=== PATIENT | male | born 1965 | race Caucasian/White ===

== ENCOUNTER 2017-04-12 08:33 | Emergency (ER) | payer MEDICAID ==
[~2017-04-12] VITALS: Ht 165.1 cm; Wt 57.5 kg
[2017-04-12 08:39] VITALS: Ht 165.1 cm; Wt 57.5 kg
[2017-04-12] MEDS ORDERED: SOD CHLORIDE 0.9% 2,000 ML IV STA (09:46)
--- NOTE | 2017-04-12 09:55 | ERD ---
ER Documentation Chief Complaint Chief Complaint WEAK,DIZZY & LEGS FEEL HEAVY, SINCE LAST WEEK, NOT GETTING BETTER HPI This is a 52-year-old diabetic who takes metformin 1000 mg twice a day he says he has had progressively worsening dry mouth dizziness with polydipsia and polyuria. Patient was seen in an outside clinic this past weekend and was given insulin subcu for hyperglycemia but did not get put on insulin or have any medication dose changes. Does not have any fever chest pain shortness of breath no cough or dysuria no recent ROS All systems reviewed and are negative except as per history of present illness. Medications Home Meds Reported Medications Glyburide* (Glyburide*) 5 Mg Tablet, 5 MG PO BID, #60 TAB 04/12/17 Metformin* (Glucophage*) 1,000 Mg Tablet, 1000 MG PO BID, #60 TAB 04/12/17 Allergies Allergies: Coded Allergies: No Known Allergy (Unverified , 04/12/17) PMhx/Soc History of Surgery: No Anesthesia Reaction: No Hx Neurological Disorder: No Hx Respiratory Disorders: No Hx Cardiac Disorders: No Hx Psychiatric Problems: No Hx Miscellaneous Medical Probl: Yes (DM II) Hx Alcohol Use: Yes (socially) Hx Substance Use: No Hx Tobacco Use: No Smoking Status: Former smoker FmHx Family History: No coronary disease Physical Exam Vitals Vital Signs Date Time Temp Pulse Resp B/P Pulse Ox O2 Delivery O2 Flow Rate FiO2 04/12/17 09:55 97.9 73 18 127/77 100 04/12/17 08:39 97.1 72 20 137/82 98 Physical Exam Const: Well-developed, well-nourished Head: Atraumatic, normocephalic Eyes: Normal Conjunctiva, PERRLA, EOMI, normal sclera, no nystagmus ENT: Normal External Ears, Nose and Mouth, moist mucus membranes. Neck: Full range of motion. No meningismus, no lymphadenopathy. Resp: Clear to auscultation bilaterally, no wheezing, rhonchi, rales Cardio: Regular rate and rhythm, no murmurs, S1 S2 present Abd: Soft, non tender x 4, non distended. Normal bowel sounds, no guarding or rebound, no pulsitile abdominal masses or bruits Skin: No petechiae or rashes, no ecchymosis , no maculopapular rash Back: No midline or flank tenderness Ext: No cyanosis, or edema, FROM x 4, normal inspection, neurovascularly intact x 4 Neur: Awake and alert, STR 5/5 x 4, sensation intact x 4, no focal findings, cerebellum intact Psych: Normal Mood and Affect Result Diagram: 04/12/1755 04/12/17 0955 Results 24 hrs Laboratory Tests Test 04/12/17 09:55 White Blood Count 8.310^3/ul Red Blood Count 5.1710^6/ul Hemoglobin 14.9g/dl Hematocrit 45.7% Mean Corpuscular Volume 88.4fl Mean Corpuscular Hemoglobin 28.8pg Mean Corpuscular Hemoglobin Concent 32.6g/dl Red Cell Distribution Width 12.2% Platelet Count 64045^3/UL Mean Platelet Volume 11.4fl Neutrophils % 74.5% Lymphocytes % 18.6% Monocytes % 5.1% Eosinophils % 1.1% Basophils % 0.5% Nucleated Red Blood Cells % 0.0/100WBC Neutrophils # 6.210^3/ul Lymphocytes # 1.510^3/ul Monocytes # 0.410^3/ul Eosinophils # 0.110^3/ul Basophils # 0.010^3/ul Nucleated Red Blood Cells # 0.010^3/ul Urine Color YELLOW Urine Clarity CLEAR Urine pH 6.0 Urine Specific [place] 1.043 Urine Ketones 2+mg/dL Urine Nitrite NEGATIVEmg/dL Urine Bilirubin NEGATIVEmg/dL Urine Urobilinogen NEGATIVEmg/dL Urine Leukocyte Esterase NEGATIVELeu/ul Urine Hemoglobin NEGATIVEmg/dL Urine Glucose 3+mg/dL Urine Total Protein NEGATIVEmg/dl Sodium Level 145mmol/L Potassium Level 4.8mmol/L Chloride Level 101mmol/L Carbon Dioxide Level 32mmol/L Anion Gap 17 Blood Urea Nitrogen 13mg/dl Creatinine 0.67mg/dl Glucose Level 336mg/dl Calcium Level 8.9mg/dl Current Medications Medications (Trade) Dose Ordered Sig/Bj Route PRN Reason Start Time Stop Time Status Last Admin Dose Admin Sodium Chloride (NS) 2,000 ml @ 1,000 mls/hr Q2H STAT IV 04/12/17 09:46 04/12/17 11:45 DC 04/12/17 10:18 Procedures/MDM Patient's blood sugars 336. He received 2 L of normal saline. The patient is taking his glyburide and metformin as told twice a day. However , he is eating a very poor diet with sodas and lots of sugar. We explained to him that he cannot you whatever he wants this because he is taking diabetes medications. He must follow a low-carb low sugar diet which is explained to him in detail Departure Diagnosis: Primary Impression: Uncontrolled diabetes mellitus Diabetes mellitus type: type 2 Diabetes mellitus complication status: without complication Diabetes mellitus intermediate teacher insulin use: without senior care use Qualified Code: E11.65 - Uncontrolled type 2 diabetes mellitus without complication, without long-term current use of insulin Condition: Stable REGAN BUTCHER DO Apr 12, 2017 09:55
[2017-04-12 10:15] LABS: BASOPHILS % 0.5 % (0.0-2.0); EOSINOPHILS # 0.1 10^3/ul (0.0-0.5); EOSINOPHILS % 1.1 % (0.0-7.0); HEMATOCRIT 45.7 % (42.0-52.0); HEMOGLOBIN 14.9 g/dl (14.0-18.0); LYMPHOCYTES # 1.5 10^3/ul (0.8-2.9); LYMPHOCYTES % 18.6 % (15.0-51.0); MEAN CORPUSCULAR HEMOGLOBIN 28.8 pg (29.0-33.0); MEAN CORPUSCULAR HGB CONC 32.6 g/dl (32.0-37.0); MEAN CORPUSCULAR VOLUME 88.4 fl (82.0-101.0); MEAN PLATELET VOLUME 11.4 fl (7.4-10.4); MONOCYTE # 0.4 10^3/ul (0.3-0.9); MONOCYTES % 5.1 % (0.0-11.0); NEUTROPHIL # 6.2 10^3/ul (1.6-7.5); NEUTROPHILS % 74.5 % (39.0-77.0); PLATELET COUNT 252 10^3/UL (140-415); RED BLOOD COUNT 5.17 10^6/ul (4.70-6.10); RED CELL DISTRIBUTION WIDTH 12.2 % (11.5-14.5); WHITE BLOOD COUNT 8.3 10^3/ul (4.8-10.8)
[2017-04-12] MEDS ORDERED: MTF1000T PO (10:18)
[2017-04-12] MEDS ORDERED: GLYB5TAB3 PO (10:19)
[2017-04-12 10:29] LABS: ADD UMIC NO; UR ASCORBIC ACID 20 mg/dL (NEGATIVE); UR BILIRUBIN (Dip) NEGATIVE (NEGATIVE); UR BLOOD (Dip) NEGATIVE (NEGATIVE); UR CLARITY CLEAR (CLEAR); UR COLOR YELLOW (YELLOW); UR GLUCOSE (Dip) 3+ mg/dL (NEGATIVE); UR KETONES (Dip) 2+ mg/dL (NEGATIVE); UR LEUKOCYTE ESTERASE (Dip) NEGATIVE Leu/ul (NEGATIVE); UR NITRITE (Dip) NEGATIVE (NEGATIVE); UR SPECIFIC GRAVITY (Dip) 1.043 (1.003-1.030); UR TOTAL PROTEIN (Dip) NEGATIVE (NEGATIVE); UR UROBILINOGEN (Dip) NEGATIVE (NEGATIVE)
[2017-04-12 10:35] LABS: CALCIUM 8.9 mg/dl (8.4-10.2); CREATININE 0.67 mg/dl (0.61-1.24); POTASSIUM 4.8 mmol/L (3.5-5.1)
--- NOTE | 2017-04-12 12:22 | ERD ---
ER Documentation Chief Complaint Chief Complaint WEAK,DIZZY & LEGS FEEL HEAVY, SINCE LAST WEEK, NOT GETTING BETTER ROS All systems reviewed and are negative except as per history of present illness. Medications Home Meds Reported Medications Glyburide* (Glyburide*) 5 Mg Tablet, 5 MG PO BID, #60 TAB 04/12/17 Metformin* (Glucophage*) 1,000 Mg Tablet, 1000 MG PO BID, #60 TAB 04/12/17 Allergies Allergies: Coded Allergies: No Known Allergy (Unverified , 04/12/17) PMhx/Soc History of Surgery: No Anesthesia Reaction: No Hx Neurological Disorder: No Hx Respiratory Disorders: No Hx Cardiac Disorders: No Hx Psychiatric Problems: No Hx Miscellaneous Medical Probl: Yes (DM II) Hx Alcohol Use: Yes (socially) Hx Substance Use: No Hx Tobacco Use: No Smoking Status: Former smoker Physical Exam Vitals Vital Signs Date Time Temp Pulse Resp B/P Pulse Ox O2 Delivery O2 Flow Rate FiO2 04/12/17 13:04 98.0 75 18 111/75 100 Room Air 04/12/17 09:55 97.9 73 18 127/77 100 04/12/17 08:39 97.1 72 20 137/82 98 Physical Exam Const: [] Head: Atraumatic Eyes: Normal Conjunctiva ENT: Normal External Ears, Nose and Mouth. Neck: Full range of motion..~ No meningismus. Resp: Clear to auscultation bilaterally Cardio: Regular rate and rhythm, no murmurs Abd: Soft, non tender, non distended. Normal bowel sounds Skin: No petechiae or rashes Back: No midline or flank tenderness Ext: No cyanosis, or edema Neur: Awake and alert Psych: Normal Mood and Affect Result Diagram: 04/12/1795404/12/17954 Results 24 hrs Laboratory Tests Test 04/12/17 09:55 White Blood Count 8.310^3/ul Red Blood Count 5.1710^6/ul Hemoglobin 14.9g/dl Hematocrit 45.7% Mean Corpuscular Volume 88.4fl Mean Corpuscular Hemoglobin 28.8pg Mean Corpuscular Hemoglobin Concent 32.6g/dl Red Cell Distribution Width 12.2% Platelet Count 29178^3/UL Mean Platelet Volume 11.4fl Neutrophils % 74.5% Lymphocytes % 18.6% Monocytes % 5.1% Eosinophils % 1.1% Basophils % 0.5% Nucleated Red Blood Cells % 0.0/100WBC Neutrophils # 6.210^3/ul Lymphocytes # 1.510^3/ul Monocytes # 0.410^3/ul Eosinophils # 0.110^3/ul Basophils # 0.010^3/ul Nucleated Red Blood Cells # 0.010^3/ul Urine Color YELLOW Urine Clarity CLEAR Urine pH 6.0 Urine Specific [place] 1.043 Urine Ketones 2+mg/dL Urine Nitrite NEGATIVEmg/dL Urine Bilirubin NEGATIVEmg/dL Urine Urobilinogen NEGATIVEmg/dL Urine Leukocyte Esterase NEGATIVELeu/ul Urine Hemoglobin NEGATIVEmg/dL Urine Glucose 3+mg/dL Urine Total Protein NEGATIVEmg/dl Sodium Level 145mmol/L Potassium Level 4.8mmol/L Chloride Level 101mmol/L Carbon Dioxide Level 32mmol/L Anion Gap 17 Blood Urea Nitrogen 13mg/dl Creatinine 0.67mg/dl Glucose Level 336mg/dl Calcium Level 8.9mg/dl Current Medications Medications (Trade) Dose Ordered Sig/Bj Route PRN Reason Start Time Stop Time Status Last Admin Dose Admin Sodium Chloride (NS) 2,000 ml @ 1,000 mls/hr Q2H STAT IV 04/12/17 09:46 04/12/17 11:45 DC 04/12/17 10:18 Departure Condition: Stable Referrals: VIJI CASTILLO MD,RORY Galindo MD Apr 12, 2017 12:22 Referrals: VIJI CASTILLO MD,RORY Galindo MD Apr 12, 2017 12:22
[2017-04-12 13:04] VITALS: BP 111/75; PULSE 75; RESP 18; TEMP 98
== END 2017-04-12 14:56 | disposition home or self-care (01) ==
LOC: E/R 08:33
DX: E11.65 Type 2 diabetes mellitus with hyperglycemia (principal); Z79.84 Long term (current) use of oral hypoglycemic drugs; Z87.891 Personal history of nicotine dependence
CPT/HCPCS: 36415; 80048; 81003; 85025; 96360; J7030; Z7502; Z7610

== ENCOUNTER 2017-10-20 09:08 | Emergency (ER) | END 2017-10-20 10:58 | disposition home or self-care (01) ==

== ENCOUNTER 2018-07-03 10:22 | Emergency (ER) | payer MEDICAID ==
[~2018-07-03] VITALS: Ht 160 cm; Wt 59.0 kg
[~2018-07-03 10:22] MED LIST: BENA10TA4 PO; GLYB5TAB3 PO; MTF1000T PO
[2018-07-03 10:28] VITALS: Ht 160 cm; Wt 59.0 kg
[2018-07-03] MEDS ORDERED: SOD CHLORIDE 0.9% 1,000 ML IV STA ×3 (11:39→13:34)
--- NOTE | 2018-07-03 11:55 | ERD ---
ER Documentation Chief Complaint Chief Complaint epigastric pain x 1 week HPI This is a 53-year-old diabetic with multiple complaints. Is complaining that he has been dizzy a little bit and had polyuria and polydipsia week ago but not this past few days. Also complaining of pain in the epigastric region that is a burning-like sensation. The patient says he has a history of reflux he has had a lot of reflux lately. He says his pain gets better when he drinks ice cold water for 5-10 seconds and then the pain will return. No melena no vomiting blood no substernal chest pressure shortness of breath palpitations ROS All systems reviewed and are negative except as per history of present illness. Medications Home Meds Active Scripts Benazepril Hcl* (Benazepril Hcl*) 10 Mg Tablet, 10 MG PO DAILY, #30 TAB Prov:SENTHIL BAUGH 10/20/17 Glyburide* (Glyburide*) 5 Mg Tablet, 5 MG PO DAILY, #30 TAB Prov:SENTHIL BAUGH 10/20/17 Metformin* (Glucophage*) 1,000 Mg Tablet, 1000 MG PO DAILY, #20 TAB Prov:SENTHIL BAUGH 10/20/17 Reported Medications Glyburide* (Glyburide*) 5 Mg Tablet, 5 MG PO BID, #60 TAB 04/12/17 Metformin* (Glucophage*) 1,000 Mg Tablet, 1000 MG PO BID, #60 TAB 04/12/17 Allergies Allergies: Coded Allergies: No Known Allergy (Unverified , 10/20/17) PMhx/Soc History of Surgery: No Anesthesia Reaction: No Hx Neurological Disorder: No Hx Respiratory Disorders: No Hx Cardiac Disorders: No Hx Psychiatric Problems: No Hx Miscellaneous Medical Probl: Yes (DM II) Hx Alcohol Use: Yes (socially) Hx Substance Use: No Hx Tobacco Use: No FmHx Family History: No coronary disease Physical Exam Vitals Vital Signs Date Temp Pulse Resp B/P (MAP) Pulse Ox O2 O2 Flow FiO2 Time Delivery Rate 07/03/18 97.3 117 19 134/73 100 10:28 (93) Physical Exam Const: Well-developed, well-nourished Head: Atraumatic, normocephalic Eyes: Normal Conjunctiva, PERRLA, EOMI, normal sclera, no nystagmus ENT: Normal External Ears, Nose and Mouth, moist mucus membranes, severe halitosis. Neck: Full range of motion. No meningismus, no lymphadenopathy. Resp: Clear to auscultation bilaterally, no wheezing, rhonchi, rales Cardio: Regular rate and rhythm, no murmurs, S1 S2 present Abd: Soft, non tender x 4, non distended. Normal bowel sounds, no guarding or rebound, no pulsitile abdominal masses or bruits Skin: No petechiae or rashes, no ecchymosis , no maculopapular rash Back: No midline or flank tenderness Ext: No cyanosis, or edema, FROM x 4, normal inspection, neurovascularly intact x 4 Neur: Awake and alert, STR 5/5 x 4, sensation intact x 4, no focal findings, cerebellum intact Psych: Normal Mood and Affect Result Diagram: 07/03/18 1150 07/03/18 1150 Results 24 hrs Laboratory Tests Test 07/03/18 11:50 07/03/18 12:50 White Blood Count 7.3 10^3/ul Red Blood Count 4.82 10^6/ul Hemoglobin 14.1 g/dl Hematocrit 42.3 % Mean Corpuscular Volume 87.8 fl Mean Corpuscular Hemoglobin 29.3 pg Mean Corpuscular Hemoglobin Concent 33.3 g/dl Red Cell Distribution Width 12.6 % Platelet Count 241 10^3/UL Mean Platelet Volume 11.2 fl Immature Granulocytes % 0.300 % Neutrophils % 80.5 % Lymphocytes % 12.8 % Monocytes % 5.1 % Eosinophils % 0.7 % Basophils % 0.6 % Nucleated Red Blood Cells % 0.0 /100WBC Immature Granulocytes # 0.020 10^3/ul Neutrophils # 5.8 10^3/ul Lymphocytes # 0.9 10^3/ul Monocytes # 0.4 10^3/ul Eosinophils # 0.1 10^3/ul Basophils # 0.0 10^3/ul Nucleated Red Blood Cells # 0.0 10^3/ul Sodium Level 142 mmol/L Potassium Level 4.8 mmol/L Chloride Level 107 mmol/L Carbon Dioxide Level 27 mmol/L Anion Gap 8 Blood Urea Nitrogen 15 mg/dl Creatinine 0.59 mg/dl Est Glomerular Filtrat Rate mL/min > 60 mL/min Glucose Level 580 mg/dl Calcium Level 9.2 mg/dl Total Bilirubin 0.3 mg/dl Direct Bilirubin 0.00 mg/dl Indirect Bilirubin 0.3 mg/dl Aspartate Amino Transf (AST/SGOT) 183 IU/L Alanine Aminotransferase (ALT/SGPT) 207 IU/L Alkaline Phosphatase 205 IU/L Troponin I < 0.012 ng/ml Total Protein 7.3 g/dl Albumin 4.0 g/dl Globulin 3.30 g/dl Albumin/Globulin Ratio 1.21 Lipase 155 U/L Urine Color STRAW Urine Clarity CLEAR Urine pH 5.0 Urine Specific [place] 1.030 Urine Ketones 1+ mg/dL Urine Nitrite NEGATIVE mg/dL Urine Bilirubin NEGATIVE mg/dL Urine Urobilinogen NEGATIVE mg/dL Urine Leukocyte Esterase NEGATIVE [place]/ul Urine Hemoglobin NEGATIVE mg/dL Urine Glucose 3+ mg/dL Urine Total Protein NEGATIVE mg/dl Current Medications Medications Dose Sig/Bj Start Time Status Last (Trade) Ordered Route PRN Stop Time Admin Dose Reason Admin Sodium 1,000 ml @ Q1H STAT 07/03/18 DC 07/03/18 Chloride 1,000 mls/hr IV 11:39 11:53 07/03/18 12:38 Sodium 1,000 ml @ Q1H STAT 07/03/18 07/03/18 Chloride 1,000 mls/hr IV 12:31 12:49 07/03/18 13:30 Insulin 12 unit ONCE ONCE 07/03/18 DC 07/03/18 Human SC 13:00 12:50 Lispro 07/03/18 13:01 (Humalog) 1 ea NOTE XX 07/03/18 Miscellaneous 13:00 Information Glucose 15 gm Q15M PRN 07/03/18 (Glutose) PO DECREASED 13:00 GLUCOSE Glucose 22.5 gm Q15M PRN 07/03/18 (Glutose) PO DECREASED 13:00 GLUCOSE Dextrose 25 ml Q15M PRN 07/03/18 (D50w IV DECREASED 13:00 Syringe) GLUCOSE Dextrose 50 ml Q15M PRN 07/03/18 (D50w IV DECREASED 13:00 Syringe) GLUCOSE Glucagon 1 mg Q15M PRN 07/03/18 (Glucagen) IM DECREASED 13:00 GLUCOSE Glucose 15 gm Q15M PRN 07/03/18 (Glutose) BUCCAL 13:00 DECREASED GLUCOSE Procedures/MDM PROCEDURE: US Abdomen. CLINICAL INDICATION: abdominal pain TECHNIQUE: Multiple real-time images were acquired of the patient's right upper quadrant abdomen and retroperitoneum utilizing a high resolution transducer. COMPARISON: None FINDINGS: The liver demonstrates normal echogenicity. The liver is normal in size and no focal solid lesions are seen. The liver measures 13.4 cm in length. The portal vein is patent with normal direction of flow. No intrahepatic biliary dilatation is seen. No gallstones are identified within the gallbladder. There is no pericholecystic fluid or gallbladder wall thickening. The common bile duct measures 4 mm in maximal dimension. The pancreas is not well seen due to overlying bowel gas. No free fluid is identified. The right kidney is normal in size, and demonstrate normal echogenicity and cortical thickness. The right kidney measures 9.6 cm in long dimension. There is no evidence of hydronephrosis. There are no kidney stones. RPTAT: AA IMPRESSION: Unremarkable right upper quadrant abdominal ultrasound. .Arpit Vincent MD, MD Date Time Electronically viewed and signed by .Arpit Vincent MD, MD on 07/03/2018 13:05 .S/ CC: REGAN BUTCHER DO [phone] Patient elevated liver function test over the sonogram does not show any evidence of gallbladder stones or cholecystitis. Does have a very elevated glucose of 568. This is why he is feeling dizzy and having polyuria. He is not in DKA. Patient symptoms psyche has esophagitis from heartburn is his pain gets better after drinking ice water. Will provide him with omeprazole. He says he takes 1000 mg of Metformin BID but has been out of his glyburide, which I will refill. Patient feels much better at this time, and vital signs are normal, symptoms have improved. I did give strict instructions to return to the ED if symptoms continue or worsen, patient will otherwise follow-up with primary care physician. Patient understood instructions and agreed to plan. Disclaimer: Inadvertent spelling and grammatical errors are likely due to EHR/dictation software use and do not reflect on the overall quality of patient care. Also, please note that the electronic time recorded on this note does not necessarily reflect the actual time of the patient encounter. Departure Diagnosis: Primary Impression: Hyperglycemia Additional Impression: Esophagitis Condition: Stable REGAN BUTCHER DO Jul 03, 2018 11:55
[2018-07-03] MEDS ORDERED: INSULIN LISPRO 100 UNIT/ML VIAL SC ONE (13:00)
[2018-07-03] MEDS ORDERED: GLUCOSE GEL 15 GRAM TUBE PO PRN ×2 (13:00)
[2018-07-03] MEDS ORDERED: GLUCAGON 1 MG INJ IM PRN (13:00)
[2018-07-03] MEDS ORDERED: GLUCOSE GEL 15 GRAM TUBE BUCCAL PRN (13:00)
[2018-07-03] MEDS ORDERED: DEXTROSE 50% 50 ML SYRINGE IV PRN ×2 (13:00)
[2018-07-03] MEDS ORDERED: GLYB5TAB3 PO (13:37)
[2018-07-03] MEDS ORDERED: OMEP40CA6 PO (13:37)
[2018-07-03 15:29] VITALS: BP 106/67; PULSE 78; RESP 20
== END 2018-07-03 15:30 | disposition home or self-care (01) ==
LOC: E/R 10:22
DX: E11.65 Type 2 diabetes mellitus with hyperglycemia (principal); K20.9 Esophagitis, unspecified; Z79.84 Long term (current) use of oral hypoglycemic drugs
CPT/HCPCS: 36415; 76705; 80053; 81003; 82962; 83690; 84484; 85025; 93005; 96372; J1815; J7030; Z7502